=== PATIENT | female | born 1955 | race Caucasian/White ===

== ENCOUNTER → 2018-10-01 12:51 | Outpatient (CLI) | payer OTHER, SELFPAY ==
--- NOTE | 2018-10-01 12:58 | DI.MRI.S_ITS ---
PROCEDURE: MR ORBITS FACE NECK WO/W CON INDICATIONS: NECK PAIN, EAR PAIN, DIZZYNESS TECHNIQUE: Sagittal/axial/coronal T1 spin echo and STIR. After the administration of contrast, axial/coronal/sagittal T1 fast spin echo with fat saturation through the neck. COMPARISON: [facility], CT, SOFT TISSUE NECK W CONTRAST, 12/13/2009, 11:14. FINDINGS: Image quality: Excellent. Lymph nodes: No enlarged nodes are seen throughout the neck. Vessels: Visualized vasculature appears normal, with destinee flow voids and enhancement. Neck spaces: The oropharynx, nasopharynx and pharynx are unremarkable, without mucosal lesions seen. Vocal cords, false vocal cords, pyriform sinuses, epiglottis, vallecula, and tongue base all appear normal. Extramucosal spaces of the neck also appear unremarkable. Glands: The parotid and submandibular glands appear normal. Thyroid gland is diffusely enlarged. Enlarged thyroid gland has not significantly changed in appearance compared to prior CT scan. Miscellaneous: Visualized brain and orbits appear normal. Lung apices appear clear. Superficial soft tissues appear normal. Visualized sinuses and mastoids appear clear. Bones: Marrow has normal overall signal. Mild cervical spine degenerative disc disease and facet arthropathy are noted. IMPRESSION: 1. No abnormal mass or suspicious postcontrast enhancement. 2. No lymphadenopathy based on size criteria. 3. No soft tissue edema or abscess. 4. No diffuse thyroid enlargement likely related to goiter. Findings not significantly changed compared to prior CT scan. 5. Mild cervical spine degenerative disc disease and facet arthropathy. Dictated by: Lia Dodson MD, PhD on 10/01/2018 at 15:21 Approved by: Lia Dodson MD, PhD on 10/01/2018 at 15:30
[2018-10-01 13:21] LABS: BUN Creatinine Ratio 15.6 (6-22); Blood Urea Nitrogen 14 mg/dL (7-17); Estimated Glomerular Filt Rate > 60.0 mL/min (>60)
== END ==
PROVIDERS: Family Provider Physician Assistant Medical; PCP Physician Assistant Medical; Visit Provider Otolaryngology
DX: Z01.812 Encounter for preprocedural laboratory examination (principal); H92.09 Otalgia, unspecified ear; R42 Dizziness and giddiness; M50.30 Other cervical disc degeneration, unspecified cervical region; M47.812 Spondylosis without myelopathy or radiculopathy, cervical region; E04.9 Nontoxic goiter, unspecified
CPT/HCPCS: 36415; 72142; 82565; 84520